=== PATIENT | female | born 1955 | race Caucasian/White ===

== ENCOUNTER 2022-04-07 10:45 | Emergency (ER) | payer OTHER ==
[~2022-04-07] VITALS: Ht 160 cm; Wt 86.2 kg
[2022-04-07 10:50] VITALS: BP 162/95
--- NOTE | 2022-04-07 10:55 | NUR ---
PT AMBULATED TO BED 03.
--- NOTE | 2022-04-07 10:58 | NUR ---
DR TORRE AT BEDSIDE.
--- NOTE | 2022-04-07 11:21 | NUR ---
67 Y/O F BIB SELF C/O MEMORY LOSS HAPPENED YESTERDAY. PT STATED SHE "WAS IN THE [employer] AND LEFT BUT SHE THINKS SHE WENT BACK AND DID MORE SHOPPING WITHOUT REMEMBERING GOING BACK". PT ADMITS TO ABUSING ALCOHOL BIT DID NOT DRINK YESTERDAY. NKA PMH: HTN, ANXIETY MEDS: LEXAPRO, MICROZIDE
--- NOTE | 2022-04-07 11:40 | NUR ---
PT TO CT SCAN WHEELCHAIR.
--- NOTE | 2022-04-07 11:46 | NUR ---
LAB AT BEDSIDE.
[2022-04-07 12:22] LABS: BASOPHILS % (AUTO) 0.4 % (0.0-2.0); EOSINOPHILS % (AUTO) 0.3 % (0.0-4.0); HEMATOCRIT 41.1 % (36-48); HEMOGLOBIN 13.9 g/dL (12.0-16.0); LYMPHOCYTES # (AUTO) 1.8 K/uL (2.5-16.5); LYMPHOCYTES % (AUTO) 20.9 % (20.5-51.1); MEAN CORPUSCULAR HEMOGLOBIN 32 pg (27-31); MEAN CORPUSCULAR HGB CONC 34 g/dL (33-37); MEAN CORPUSCULAR VOLUME 95.8 fL (80-94); MONOCYTES # (AUTO) 0.6 K/uL (0.8-1.0); MONOCYTES % (AUTO) 6.7 % (1.7-9.3); NEUTROPHILS # (AUTO) 6.3 K/uL (1.8-7.7); NEUTROPHILS % (AUTO) 71.7 % (42.2-75.2); PLATELET COUNT (AUTO) 226 K/uL (140-450); RED BLOOD CELL COUNT(AUTO) 4.29 MIL/uL (4.20-5.40); RED CELL DISTRIBUTION WIDTH 13.6 % (11.6-13.7); WHITE BLOOD COUNT (AUTO) 8.8 K/uL (4.8-10.8)
[2022-04-07 12:24] LABS: ALBUMIN 3.7 g/dL (3.4-5.0); CARBON DIOXIDE 26.9 mmol/L (21-32); CREATININE 1.1 mg/dL (0.6-1.3); POTASSIUM 3.9 mmol/L (3.5-5.1); THYROID STIMULATING HORMONE 0.86 uIU/mL (0.34-3.74); TOTAL BILIRUBIN 0.4 mg/dL (0.0-1.0)
[2022-04-07 12:51] VITALS: BP 148/89
--- NOTE | 2022-04-07 12:51 | NUR ---
Patient discharged with v/s stable. Written and verbal after care instructions given and explained. Patient verbalized understanding. Ambulatory with steady gait. All questions addressed prior to discharge. Advised to follow up with PMD.
== END 2022-04-07 12:51 | disposition home or self-care (01) ==
LOC: MED 10:45
DX: F41.9 Anxiety disorder, unspecified (principal); F32.A Depression, unspecified; R41.82 Altered mental status, unspecified; F10.10 Alcohol abuse, uncomplicated; Y90.9 Presence of alcohol in blood, level not specified
CPT/HCPCS: 36415; 70450; 71045; 80053; 84443; 85025; 99285